=== PATIENT | female | born 1960 | race Caucasian/White ===

== ENCOUNTER 2022-11-15 18:02 | Emergency (ER) | payer OTHER ==
[~2022-11-15] VITALS: Ht 157.5 cm; Wt 82.1 kg
[2022-11-15] MEDS ORDERED: CEPH500C2 PO (19:24)
[2022-11-15 19:33] VITALS: BP 128/78; TEMP 98.1; O2SAT 99
== END 2022-11-15 19:33 | disposition home or self-care (01) ==
LOC: ER 18:08
DX: L60.0 Ingrowing nail (principal); I10 Essential (primary) hypertension; E11.9 Type 2 diabetes mellitus without complications; Z88.2 Allergy status to sulfonamides; Z88.8 Allergy status to other drugs, medicaments and biological substances